=== PATIENT | male | born 1985 | race African-American/Black ===

== ENCOUNTER 2021-01-20 23:58 | Emergency (ER) | payer MEDICAID ==
[~2021-01-20] VITALS: Ht 180.3 cm; Wt 77.0 kg
[2021-01-21] MEDS ORDERED: TETANUS, DIPHTHERIA, PERTUSSIS VAC/PF 0.5ML (>7YR OLD) IM ONE (00:15)
[2021-01-21] MEDS ORDERED: LIDOCAINE HCL/EPINEPHRINE 1%-EPI 1:100,000 50 ML VIAL INFIL ONE (00:45)
[2021-01-21] MEDS ORDERED: MORPHINE SULFATE 4 MG/ML CPJ (NOT FOR IM USE) IV ONE (01:00)
[2021-01-21] MEDS ORDERED: CEFAZOLIN 1000MG PREMIX 50 ML IV ONE (01:00)
[2021-01-21 01:27] LABS: BASOPHILS % 0.5 % (0.0-2.0); EOSINOPHILS % 0.5 % (0.0-5.0); HEMATOCRIT. 49.2 % (42.0-52.0); HEMOGLOBIN. 16.5 g/dL (14.0-18.0); LYMPHOCYTES % 15.5 % (20.0-50.0); MEAN CORPUSCULAR HEMOGLOBIN 29.4 pg (28.0-32.0); MEAN CORPUSCULAR VOLUME 87.8 fL (80.0-94.0); MEAN PLATELET VOLUME 8.7 fl (7.4-10.4); MONOCYTES % 7.8 % (2.0-8.0); NEUTROPHILS % 75.7 % (40.0-76.0); PLATELET 183 x1000/uL (130-400); RED BLOOD CELL COUNT 5.61 mill/uL (4.7-6.1); RED CELL DISTRIBUTION WIDTH 15.2 % (11.6-14.6)
[2021-01-21] MEDS ORDERED: LIDOCAINE HCL/EPINEPHRINE 1%-EPI 1:100,000 10 ML VIAL IJ NR (01:30)
[2021-01-21 01:32] LABS: CHLORIDE 112 mEq/L (98-107)
[2021-01-21 01:50] LABS: INR 0.9; PARTIAL THROMBOPLASTIN TIME 25.1 sec (23.4-31.0); PROTHROMBIN TIME 10.2 sec (9.6-11.0)
[2021-01-21] MEDS ORDERED: DIPHENHYDRAMINE 25MG CAPSULE PO ONE (02:15)
[2021-01-21 02:20] VITALS: BP 128/74
== END 2021-01-21 02:52 | disposition home or self-care (01) ==
LOC: ER 23:58
DX: S01.01XA Laceration without foreign body of scalp, initial encounter (principal); I49.9 Cardiac arrhythmia, unspecified; V43.62XA Car passenger injured in collision with other type car in traffic accident, initial encounter; Y93.89 Activity, other specified; Y92.89 Other specified places as the place of occurrence of the external cause; Y99.8 Other external cause status
CPT/HCPCS: 12006; 12011; 36415; 70450; 71045; 72125; 72170; 73562; 80053; 83690; 85025; 85610; 85730; 86850; 86900; 86901; 90471; 90715; 93005; 96365; 96375; 99285; J0690; J2270; J3490; Q0163; Z7610

== ENCOUNTER 2021-01-28 11:36 | Emergency (ER) | payer MEDICAID ==
[~2021-01-28] VITALS: Ht 180.3 cm; Wt 77.0 kg
[2021-01-28 12:07] VITALS: BP 124/89
== END 2021-01-28 12:14 | disposition home or self-care (01) ==
LOC: ER 11:36
DX: S01.01XD Laceration without foreign body of scalp, subsequent encounter (principal); F12.10 Cannabis abuse, uncomplicated; Z98.890 Other specified postprocedural states; Z88.6 Allergy status to analgesic agent; Z48.02 Encounter for removal of sutures; Z48.00 Encounter for change or removal of nonsurgical wound dressing; X58.XXXD Exposure to other specified factors, subsequent encounter
CPT/HCPCS: 99281; Z7610

== ENCOUNTER 2021-04-16 16:49 | Inpatient (IN) | payer MEDICAID ==
[~2021-04-16] VITALS: Ht 182.9 cm; Wt 79.4 kg
[2021-04-16] MEDS ORDERED: SODIUM CHLORIDE 0.9% 1,000 ML IV ONE ×2 (17:15→22:45)
[2021-04-16 17:33] LABS: BASOPHILS % 0.5 % (0.0-2.0); EOSINOPHILS % 0.1 % (0.0-5.0); HEMATOCRIT. 49.9 % (42.0-52.0); HEMOGLOBIN. 16.6 g/dL (14.0-18.0); LYMPHOCYTES % 7.2 % (20.0-50.0); MEAN CORPUSCULAR HEMOGLOBIN 29.3 pg (28.0-32.0); MEAN CORPUSCULAR VOLUME 88.1 fL (80.0-94.0); MEAN PLATELET VOLUME 9.1 fl (7.4-10.4); NEUTROPHILS % 88.2 % (40.0-76.0); PLATELET 217 x1000/uL (130-400); RED BLOOD CELL COUNT 5.66 mill/uL (4.7-6.1); RED CELL DISTRIBUTION WIDTH 15.4 % (11.6-14.6)
[2021-04-16 17:39] LABS: CHLORIDE 108 mEq/L (98-107)
[2021-04-16] MEDS ORDERED: VISCOUS LIDOCAINE 2% 15 ML UDC MM STA (17:40)
[2021-04-16 17:43] LABS: ETHANOL BLOOD < 10 mg/dL
[2021-04-16] MEDS ORDERED: ONDANSETRON HCL 4MG/2ML INJ IV ONE ×2 (17:45→21:45)
[2021-04-16] MEDS ORDERED: FAMOTIDINE 20MG TABLET PO ONE (17:45)
[2021-04-16] MEDS ORDERED: MAGNESIUM/ALUMINUM HYDROXIDE/SIMETHICONE 30ML UDC PO ONE (17:45)
[2021-04-16] MEDS ORDERED: HALOPERIDOL LACTATE 5MG/ML VIAL IM ONE (21:45)
[2021-04-16] MEDS ORDERED: ACETAMINOPHEN 325MG TABLET PO ONE (21:45)
[2021-04-16] MEDS ORDERED: LORAZEPAM 2MG/ML CPJ IV ONE (21:45)
[2021-04-17 01:48] VITALS: BP 125/73
[2021-04-17 02:00] VITALS: BP 125/73
[2021-04-17] MEDS ORDERED: ACETAMINOPHEN 325MG TABLET PO PRN (02:15)
[2021-04-17] MEDS ORDERED: ONDANSETRON HCL 4MG/2ML INJ IV PRN (02:15)
[2021-04-17 04:00] VITALS: BP 120/72
[2021-04-17] MEDS ORDERED: LEVOFLOXACIN 500MG PREMIX 100 ML IV SCH (04:00)
[2021-04-17] MEDS ORDERED: DEXT 5%/0.45% NACL KCL 20MEQ/L 1,000 ML IV SCH (04:00)
[2021-04-17 06:20] VITALS: BP 120/72
[2021-04-17 08:00] VITALS: BP 108/52
[2021-04-17] MEDS ORDERED: FAMOTIDINE 20MG TABLET PO SCH (09:00)
[2021-04-17 12:17] VITALS: BP 110/56
== END 2021-04-17 12:40 | disposition home or self-care (01) | DRG 241 ==
LOC: ER 17:51 → ENRESERV 23:59 → 8WST 04-17 01:24
PROVIDERS: ADMIT Internal Medicine; ATTEND Internal Medicine
DX: K29.20 Alcoholic gastritis without bleeding (principal); E87.2 Acidosis; E87.8 Other disorders of electrolyte and fluid balance, not elsewhere classified; K52.9 Noninfective gastroenteritis and colitis, unspecified; F17.200 Nicotine dependence, unspecified, uncomplicated; R51.9 Headache, unspecified; Z88.5 Allergy status to narcotic agent
CPT/HCPCS: 36415; 71045; 80053; 80320; 83605; 83880; 84484; 85025; 93005; 99291; J1630; J1956; J2060; J2405; J7030; G0480

== ENCOUNTER 2025-03-24 18:13 | Emergency (ER) | payer SELFPAY ==
[~2025-03-24] VITALS: Ht 190.5 cm; Wt 73.0 kg
[2025-03-24 18:16] VITALS: O2SAT 100
[2025-03-24 18:52] VITALS: TEMP 37; O2SAT 97
[2025-03-24] MEDS ORDERED: IBUP-2029 MT (19:23)
[2025-03-24 19:36] VITALS: BP 109/78; PULSE 92; RESP 14
== END 2025-03-24 19:39 | disposition home or self-care (01) ==
LOC: ER 18:13
DX: S83.92XA Sprain of unspecified site of left knee, initial encounter (principal); Z88.5 Allergy status to narcotic agent; X58.XXXA Exposure to other specified factors, initial encounter; Y93.89 Activity, other specified; Y92.89 Other specified places as the place of occurrence of the external cause; Y99.8 Other external cause status
CPT/HCPCS: 73560; 99283